=== PATIENT | female | born 1960 | race Caucasian/White ===

== ENCOUNTER 2016-10-28 07:06 | Emergency (ER) | payer OTHER ==
[~2016-10-28] VITALS: Ht 157.5 cm; Wt 57.8 kg
[2016-10-28] MEDS ORDERED: SODIUM CHLORIDE 0.9% 1,000 ML IV ONE (07:29)
[2016-10-28] MEDS ORDERED: ONDANSETRON 2MG/ML, 2ML IVPush ONE ×2 (07:30→10:30)
[2016-10-28] MEDS ORDERED: SODIUM CHLORIDE 0.9% 1,000ML IVBOLUS ONE (07:30)
[2016-10-28] MEDS ORDERED: SODIUM CHLORIDE FLUSH 10ML SYR IVF ONE (07:30)
[2016-10-28] MEDS ORDERED: HYDROmorphone 1 MG/ML, 1ML ONE (07:38)
[2016-10-28] MEDS ORDERED: ONDANSETRON 2MG/ML, 2ML ONE ×2 (07:39→10:26)
[2016-10-28] MEDS: HYDROmorphone 1 MG/ML, 1ML IVPush PRN ×2 (07:41→10:33)
[2016-10-28 07:50] LABS: HEMOGLOBIN 13.6 g/dL (11.7-16.4)
[2016-10-28 08:00] LABS: ASPARTATE AMINO TRANSFERASE 21 U/L (15-37); BLOOD UREA NITROGEN 17 mg/dL (7-18)
[2016-10-28] MEDS ORDERED: OMNIPAQUE 350 MG/ML, 100ML BOTTLE ONE (08:45)
[2016-10-28] MEDS ORDERED: KETOROLAC 30 MG/1 ML ONE (10:26)
[2016-10-28] MEDS ORDERED: KETOROLAC 30 MG/1 ML IVPush ONE (10:30)
[2016-10-28 11:26] VITALS: BP 110/53
== END 2016-10-28 11:31 | disposition home or self-care (01) ==
LOC: ED 10:12
DX: K59.00 Constipation, unspecified (principal); R10.33 Periumbilical pain; D72.829 Elevated white blood cell count, unspecified; Z88.5 Allergy status to narcotic agent
CPT/HCPCS: 36415; 74020; 74177; 80053; 81001; 83690; 85025; 93005; 96361; 96374; 96375; 96376; 99285; J1170; J1885; J2405; J7030; Q9967